=== PATIENT | female | born 1995 | race Native Hawaiian/Other Pacific Islander ===

== ENCOUNTER 2022-03-11 12:00 | Emergency (ER) | payer OTHER ==
[~2022-03-11] VITALS: Ht 180.3 cm; Wt 81.6 kg
[2022-03-11 12:05] VITALS: BP 132/98; TEMP 98
[2022-03-11] MEDS ORDERED: FLUC150T PO (13:00)
[2022-03-11] MEDS ORDERED: AMOX875T8 PO (13:00)
== END 2022-03-11 13:15 | disposition home or self-care (01) ==
LOC: ED 12:00
DX: S71.132A Puncture wound without foreign body, left thigh, initial encounter (principal); W54.0XXA Bitten by dog, initial encounter; Y92.89 Other specified places as the place of occurrence of the external cause
CPT/HCPCS: 80307; 99282

== ENCOUNTER 2022-08-02 08:31 | Outpatient (CLI) | payer OTHER ==
[~2022-08-02 08:31] MED LIST: AMOX875T8 PO; FLUC150T PO
[2022-08-02 09:07] LABS: PLATELET COUNT 269 K/uL (152-353)
[2022-08-02 09:33] LABS: POTASSIUM 3.7 mmol/L (3.6-5.2)
== END 2022-08-02 20:10 | disposition home or self-care (01) ==
LOC: LABW 08:31
PROVIDERS: ATTEND Nurse Practitioner
DX: R53.83 Other fatigue (principal); Z86.2 Personal history of diseases of the blood and blood-forming organs and certain disorders involving the immune mechanism; Z09 Encounter for follow-up examination after completed treatment for conditions other than malignant neoplasm
CPT/HCPCS: 80053; 82306; 82607; 83540; 83550; 84436; 84443; 84480; 85027; 86677

== ENCOUNTER → 2022-10-17 | Outpatient (CLI) | payer OTHER | LOC: RAD 22:30 | PROVIDERS: ATTEND Family Medicine | DX: R07.89 Other chest pain (principal); R05.9 Cough, unspecified ==